=== PATIENT | male | born 2005 | race Caucasian/White ===

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

== ENCOUNTER 2023-05-01 07:20 | Emergency (ER) | payer BC, OTHER, SELFPAY ==
[2023-05-01 07:26] VITALS: BP 174/89; PULSE 99; O2SAT 98
[2023-05-01 07:31] VITALS: BP 154/92; PULSE 100; O2SAT 97
[2023-05-01 07:35] VITALS: BP 174/89; PULSE 107; RESP 17; TEMP 36.9; O2SAT 98; BMI 41.5
--- NOTE | 2023-05-01 08:08 | HMH.EDGENADL ---
Discharge Plan Disposition Patient Disposition: Home, Self-Care Prescriptions Prescriptions: New cefadroxil 500 mg capsule 500 mg PO BID 5 Days Qty: 10 0RF No Action loratadine [Claritin Liqui-Gel] 10 mg capsule 10 mg PO DAILY fluticasone propionate 50 mcg/actuation spray,suspension 1 spray intranasal DAILY cetirizine 10 mg tablet 10 mg PO DAILY Label Comments: TAKE 1 TABLET BY MOUTH ONCE DAILY NEEDED hydroxyzine pamoate [Vistaril] 25 mg capsule 25 mg PO TID PRN (Reason: for increased anxiety) Qty: 90 0RF oxcarbazepine [Trileptal] 300 mg tablet 300 mg PO DAILY Qty: 30 2RF fexofenadine-pseudoephedrine 1 EACH tablet extended release 24 hr 1 tab PO DAILY quetiapine [Seroquel] 100 mg tablet 100 mg PO QHS Referrals Follow up/Referrals: Deysi Dubose APRN [Primary Care Provider] - See instructions Clinical Impressions Clinical Impression: Paronychia of great toe, Cellulitis Discharge ED Provider: Reid Chavez General Adult HPI General Chief complaint: PAIN Stated complaint: big toe on right foot, pain Time Seen by Provider: 05/01/23 07:55 Mode of Arrival: Ambulatory Source of Information: Patient Limitations: No Limitations Description of Symptoms (Recalled from ER Triage Doc. by RN): pt to ed c/o right great toe pain x2 weeks. pt reports hx of ingrown toenails. History of Present Illness HPI narrative: This is a 17-year-old presenting with paronychia. Patient states that he was diagnosed with paronychia about 2 weeks prior to arrival. It was on the medial aspect of his right great toe. He had it incised and drained in the emergency department. Since went down, developed paronychia on the lateral aspect of great toe a couple days prior to arrival. Tried to self incise it, did not work, increasingly painful and red. No systemic signs or symptoms, but red tracking up the toe. Moderate to significant pain when striking it on things, but mild to moderate pain at rest. Related Data Home Medications Medication Instructions Recorded Confirmed loratadine 10 mg capsule (Claritin 10 mg PO DAILY ALLERGIES 07/16/21 05/01/23 Liqui-Gel) fexofenadine-pseudoephedrine ER 1 tab PO DAILY ALLERGIES 08/11/21 05/01/23 180 mg-240 mg tablet,ext.release 24 hr cetirizine 10 mg tablet 10 mg PO DAILY allergies 02/02/23 05/01/23 fluticasone propionate 50 1 spray intranasal DAILY allergies 02/02/23 05/01/23 mcg/actuation nasal spray,suspension quetiapine 100 mg tablet (Seroquel) 100 mg PO QHS sleep 05/01/23 05/01/23 Previous Rx's Medication Instructions Recorded hydroxyzine pamoate 25 mg capsule 25 mg PO TID PRN for increased 03/16/23 (Vistaril) anxiety #90 caps oxcarbazepine 300 mg tablet 300 mg PO DAILY BIPOLAR DISORDER. 03/23/23 (Trileptal) #30 tabs cefadroxil 500 mg capsule 500 mg PO BID 5 days #10 caps 05/01/23 Allergies Allergy/AdvReac Type Severity Reaction Status Date / Time No Known Allergies Allergy Verified 04/14/23 20:18 [facility] Disclaimer: The information contained in this section may have been updated after the patient was seen, as this information can be updated by other users. Medical History Anxiety Bipolar II disorder Depression Hypertension Right ankle pain Sinus congestion Surgical History History of nasal surgery History of tonsillectomy Social History Smoking Status: Never smoker alcohol intake: never substance use type: marijuana current occupational status: employed Travel in the last 8 weeks: None household members: family housing: house number of children: 0 current occupational exposures/hazards: No caffeine: Yes ROS Obtained: Yes All systems reviewed & no additional complaints except as documented Physical Exam
[2023-05-01 09:00] VITALS: BP 127/89; PULSE 82; RESP 16; TEMP 36.7
== END 2023-05-01 09:01 | disposition home or self-care (01) ==
PROVIDERS: Emergency Provider Emergency Medicine; PCP Nurse Practitioner Family
DX: L03.031 Cellulitis of right toe (principal); F31.81 Bipolar II disorder; F41.9 Anxiety disorder, unspecified; I10 Essential (primary) hypertension
CPT/HCPCS: 10060; 99283; 99284

== ENCOUNTER 2024-03-23 08:48 | Emergency (ER) | payer BC, OTHER, SELFPAY ==
[2024-03-23 08:49] VITALS: BP 164/104; PULSE 120; RESP 18; TEMP 36.8; O2SAT 100; BMI 42.0
--- NOTE | 2024-03-23 08:51 | ED_ITS ---
Discharge Plan Disposition Patient Disposition: Home, Self-Care Condition: Good Prescriptions Prescriptions: New meloxicam 15 mg tablet 15 mg PO DAILY 14 Days Qty: 14 0RF doxycycline hyclate 100 mg tablet 100 mg PO BID 7 Days Qty: 14 0RF No Action loratadine [Claritin Liqui-Gel] 10 mg capsule 10 mg PO DAILY fluticasone propionate 50 mcg/actuation spray,suspension 1 spray intranasal DAILY cetirizine 10 mg tablet 10 mg PO DAILY Patient Comments: TAKE 1 TABLET BY MOUTH ONCE DAILY NEEDED hydroxyzine pamoate 25 mg capsule See Rx Instructions .ROUTE .COMPLEX Qty: 90 0RF Dose Instruction: TAKE 1 CAPSULE BY MOUTH THREE TIMES DAILY NEEDED FOR INCREASED ANXIETY Rx Instructions: TAKE 1 CAPSULE BY MOUTH THREE TIMES DAILY NEEDED FOR INCREASED ANXIETY oxcarbazepine 300 mg tablet See Rx Instructions .ROUTE .COMPLEX Qty: 90 0RF Dose Instruction: TAKE 1 TABLET BY MOUTH ONCE DAILY FOR BIPOLAR DISORDER Rx Instructions: TAKE 1 TABLET BY MOUTH ONCE DAILY FOR BIPOLAR DISORDER quetiapine 100 mg tablet See Rx Instructions .ROUTE .COMPLEX Qty: 90 0RF Dose Instruction: TAKE 1 TABLET BY MOUTH EVERY DAY AT BEDTIME FOR SLEEP Rx Instructions: TAKE 1 TABLET BY MOUTH EVERY DAY AT BEDTIME FOR SLEEP Referrals Follow up/Referrals: Deysi Dubose APRN [Primary Care Provider] - See instructions Khari Salamanca MD [Staff Physician] - See instructions Activity Restrictions/Add. Instructions Additional Instructions/Restrictions: As we discussed, your ultrasound shows a hydrocele of your right testicle, which is likely what is causing your pain. Given that you have had burning with urination after shared decision making we will treat with antibiotics. I have placed a referral to urology for you to see them to evaluate next steps of [place] tment for the hydrocele. Please return with any new or worsening symptoms. Clinical Impressions Clinical Impression: Hydrocele of testis, Urethritis Instructions Patient Instructions: DI for Urinary Tract Infection (UTI), DI for Urinary Tract Infection in Children Discharge ED Provider: Cruz Crow General Adult HPI General Chief complaint: Urogenital-Male Stated complaint: right swollen testicle, pain Time Seen by Provider: 03/23/24 08:51 History of Present Illness HPI narrative: The patient presents with a chief complaint of severe pain and swelling in his r ight testicle. The pain began intermittently on Tuesday but significantly worsened last night after lifting a heavy pallet at work. The swelling developed between Tuesday and today. He describes the pain as severe and localized to the right testicle. He has a past medical history of a previous infection in the same area, though he does not specify the type of infection. He mentions experiencing some pain during urination since Tuesday, describing it as a burning sensation. The patient denies any recent injuries to the area prior to the onset of symptoms. He also denies any nausea, vomiting, or penile discharge. He confirms being sexually active but does not provide details about recent new partners or concerns for sexually transmitted infections (STIs). Please note that above description of symptoms, in this electronic medical record under categorization of recalled from ER triage doctor by RN are reflective of an initial nursing assessment, however, is not reflective of my full history and physical exam that was personally taken and clarified. Consequentially, this preceding description of symptoms, which may include the patient's categorized chief complaint in the EMR, do not reflect my personal clinical impression, and the ultimate description of history of present illness and patient stated complaints should be deferred to this section of the note. Unless stated otherwise or congruent with this section of the note, additional signs, symptoms, or incongruence should be interpreted as inaccurate with my clinical impression. Related Data Home Medications Medication Instructions Recorded Confirmed loratadine 10 mg capsule (Claritin 10 mg PO DAILY ALLERGIES 07/16/21 02/22/24 Liqui-Gel) cetirizine 10 mg tablet 10 mg PO DAILY allergies 02/02/23 02/22/24 fluticasone propionate 50 1 spray intranasal DAILY allergies 02/02/23 02/22/24 mcg/actuation nasal spray,suspension Previous Rx's Medication Instructions Recorded hydroxyzine pamoate 25 mg capsule See Rx Instructions .Route 02/22/24 .COMPLEX #90 caps oxcarbazepine 300 mg tablet See Rx Instructions .Route 02/22/24 .COMPLEX #90 tabs quetiapine 100 mg tablet See Rx Instructions .Route 02/22/24 .COMPLEX #90 tabs doxycycline hyclate 100 mg tablet 100 mg PO BID 7 days #14 tabs 03/23/24 meloxicam 15 mg tablet 15 mg PO DAILY 2 weeks #14 tabs 03/23/24 Allergies Allergy/AdvReac Type Severity Reaction Status Date / Time No Known Allergies Allergy Verified 02/22/24 08:41 [facility] Disclaimer: The information contained in this section may have been updated after the patient was seen, as this information can be updated by other users. Medical History Anxiety Bipolar II disorder Depression Hypertension Right ankle pain Sinus congestion Surgical History History of nasal surgery History of tonsillectomy Social History Smoking Status: Never smoker alcohol intake: never substance use type: marijuana current occupational status: employed Travel in the last 8 weeks: None household members: family housing: house number of children: 0 current occupational exposures/hazards: No caffeine: Yes ROS Obtained: Yes other As per HPI Physical Exam General General appearance: alert and in no apparent distress Head Head exam: atraumatic and normocephalic Eye Eye exam: Present normal appearance Neck Neck exam: Present normal inspection Chest Chest inspection: Present normal inspection and symmetric chest wall rise Respiratory Respiratory exam: Present normal lung sounds bilaterally; Absent respiratory distress Cardiovascular Cardiovascular exam: Present regular rate and normal rhythm Abdominal Exam Abdominal exam: Present soft Neurological Exam Neurological exam: Present alert and oriented X3 Psychiatric Psychiatric exam: Present normal affect and normal mood Skin Skin exam: Present warm and dry Other Other exam information: Right testicle edematous, mildly tender to palpation, normal lie, no other acute findings Medical Decision Making Medical Records Medical records reviewed: Yes I reviewed the patient's medical records. Luis Miguel Inquiry Pt receiving controlled substance: No Vital Signs: 03/23/24 08:49 03/23/24 10:18 03/23/24 10:30 Temperature 98.2 F Temperature Source Oral Pulse Rate 100 H 99 H Pulse Rate [Right Radial] 120 H Respiratory Rate 18 Blood Pressure 135/87 146/82 H Blood Pressure [Right Arm] 164/104 H Blood Pressure Mean [Right Arm] 124 Blood Pressure Source Blood Pressure Source [Right Arm] Automatic Cuff Blood Pressure Position Blood Pressure Position [Right Arm] Sitting 02 Sat by Pulse Oximetry 100 97 97 Oxygen Delivery Method Room Air 03/23/24 10:46 Temperature 98.3 F Temperature Source Oral Pulse Rate 80 Pulse Rate [Right Radial] Respiratory Rate 20 Blood Pressure 132/62 Blood Pressure [Right Arm] Blood Pressure Mean [Right Arm] Blood Pressure Source Automatic Cuff Blood Pressure Source [Right Arm] Blood Pressure Position Sitting Blood Pressure Position [Right Arm] 02 Sat by Pulse Oximetry Oxygen Delivery Method Room Air Lab Data Lab Results 03/23/24 09:20: Urine Color Yellow, Urine Appearance Clear, Urine pH 6.0, Ur Specific [place] >= 1.030, Urine Protein 2+, Urine Glucose (UA) Negative, Urine Ketones Negative, Urine Blood Negative, Urine Nitrate Negative, Urine Bilirubin Negative, Urine Urobilinogen 0.2, Ur Leukocyte Esterase Negative, Urine RBC Occasional, Urine WBC Occasional, Ur Squamous Epith Cells None, Urine Bacteria Trace, Hyaline Casts Occasional, Urine Mucus Trace Orders (Tests/Meds): ED MEDICATIONS Discontinued Medications Generic Name Dose Route Start Last Admin Trade Name Freq PRN Reason Stop Dose Admin Ceftriaxone Sodium 500 mg 03/23/24 10:27 03/23/24 10:32 Ceftriaxone 500mg Vial IM 03/23/24 10:28 500 mg ONCE ONE Administration Lidocaine HCl 0 ml 03/23/24 10:27 03/23/24 10:33 Lidocaine 1% 5ml Pf Vial IM 03/23/24 10:28 1 ml ONCE ONE Administration ORDERS Category Date Time Status Urinalysis and Microscopic Stat Lab 03/23/24 09:20 Completed US Testicular Stat Ultrasound 03/23/24 09:10 Completed Medical Decision Narrative: Patient with history and exam per above presenting for evaluation of right testicle pain Diagnoses considered include testicular torsion, varicocele, epididymitis, hydrocele, pyocele, STI ED workup and treatment included: ED MEDICATIONS Discontinued Medications Generic Name Dose Route Start Last Admin Trade Name Freq PRN Reason Stop Dose Admin Ceftriaxone Sodium 500 mg 03/23/24 10:27 03/23/24 10:32 Ceftriaxone 500mg Vial IM 03/23/24 10:28 500 mg ONCE ONE Administration Lidocaine HCl 0 ml 03/23/24 10:27 03/23/24 10:33 Lidocaine 1% 5ml Pf Vial IM 03/23/24 10:28 1 ml ONCE ONE Administration ORDERS Category Date Time Status Urinalysis and Microscopic Stat Lab 03/23/24 09:20 Completed US Testicular Stat Ultrasound 03/23/24 09:10 Completed Labs were independently interpreted by me, significant for bacteriuria, pyuria Imaging was independently visualized and interpreted by me, significant for hydrocele, no evidence of torsion. Please refer to radiology report for full details. My clinical impression at this time is most consistent with cystitis, symptomatic hydrocele, will treat empirically for STI coverage I discussed my clinical impression with patient and answered all questions. At this time, the evidence for any other entities in the differential is insufficient to warrant any further testing or ED observation. This was explained to the patient. The patient was advised that persistent or worsening symptoms require further evaluation. I confirmed the patient's understanding of this discussion. Critical Care Critical Care Time Critical Care Time: No
--- NOTE | 2024-03-23 09:10 | US_ITS ---
FINAL REPORT TECHNIQUE: Ultrasound images of the testicles were obtained bilaterally. Color Doppler images were obtained. CLINICAL HISTORY: testicular pain, swelling COMPARISON: 07/21/2022 FINDINGS: The right testicle measures 5.6 x 2.8 x 2.6 cm. The left testicle measures 4.8 x 2.3 x 3.1 cm. Arterial flow is identified bilaterally. No intratesticular masses are identified. There is a large right hydrocele which is significantly worse than previous. IMPRESSION: Large right hydrocele, worse than previous. Reviewed, Interpreted and Dictated by Toño Larson III, MD Transcribed by Bev Tomlinson Authenticated and [facility]
--- NOTE | 2024-03-23 09:26 | PC.NURSE ---
patient to RAD at this time
[2024-03-23 09:28] LABS: Microscopic, Urine URINE MICROSCOPIC (MICROSCOPIC)
[2024-03-23 09:39] LABS: Appearance,Urine CLEAR (Clear); Bilirubin,Urine Negative (Negative); Blood, Urine Negative (Negative); Color,Urine YELLOW (Yellow); Glucose,Urine (UA) Negative (Negative); Ketones,Urine Negative (Negative); Leukocyte Esterase,Urine Negative (Negative); Nitrate,Urine Negative (Negative); Protein,Urine 2+ (Negative); Specific Gravity, Urine >= 1.030 (1.005-1.030); Urobilinogen,Urine 0.2 EU/dl (0.2)
[2024-03-23 10:18] VITALS: BP 135/87; PULSE 100; O2SAT 97
[2024-03-23 10:30] VITALS: BP 146/82; PULSE 99; O2SAT 97
[2024-03-23] MEDS: cefTRIAXone 500MG VIAL 500 MG IM (10:32)
[2024-03-23] MEDS: LIDOCAINE 1% 5ML PF VIAL IM (10:33)
[2024-03-23 10:46] VITALS: BP 132/62; PULSE 80; RESP 20; TEMP 36.8; O2SAT 98
[2024-03-23 11:02] LABS: Bacteria,Urine Trace /lpf; Mucus,Urine Trace /lpf; RBC,Urine Occasional #/hpf (0-3); WBC,Urine Occasional #/hpf (0-3)
[2024-03-23 11:03] LABS: Hyaline Casts,Urine Occasional #/lpf (0)
== END 2024-03-23 10:48 | disposition home or self-care (01) ==
PROVIDERS: Emergency Provider Emergency Medicine; PCP Nurse Practitioner Family
DX: N43.3 Hydrocele, unspecified (principal); N34.2 Other urethritis; R30.0 Dysuria
CPT/HCPCS: 76870; 81001; 96372; 99284; J0696